=== PATIENT | female | born 2000 | race Caucasian/White ===

== ENCOUNTER → 2024-03-03 09:00 | Outpatient (REF) | payer OTHER, SELFPAY | LOC: DHSLP 09:00 | PROVIDERS: ATTENDING PHYSICIAN Internal Medicine Critical Care Medicine | DX: G47.19 Other hypersomnia (principal); G47.8 Other sleep disorders; R06.83 Snoring | CPT/HCPCS: 95800 ==

== ENCOUNTER 2025-05-04 10:51 | Emergency (ER) | payer SELFPAY ==
[2025-05-04 10:53] VITALS: BP 134/84
--- NOTE | 2025-05-04 11:40 | ED.GENMED ---
History of Present Illness
General
Chief Complaint: Skin Surface Trauma
Time Seen by Provider: 05/04/25 11:20
History of Present Illness
History of Present Illness:
24-year-old female presenting to the emergency department with laceration to left index finger. Patient reports she was cutting food prior to arrival with subsequent injury. Denies issues with range of motion. Denies numbness. Tetanus unknown.
Denies additional acute medical complaints
Past History
Past History
ED Past Medical History: None
ED Past Surgical History: None
Phy Exam
Physical Exam
Physical Exam:
General: Well-appearing, no clinical signs of dehydration, nontoxic and in no acute distress
HEENT: protecting airway
Neck: appears supple
CV: Normal heart rate
Resp: No accessory muscle use, no increased work of breathing
Abd: no distension
Extremities: No deformities, no swelling. Flap laceration to the left index finger at the distal aspect of the digit without involvement to the nailbed with range of motion intact.
Neuro: alert, no focal neurologic deficit
: deferred
Rectal: deferred
Psych: Normal affect
Skin: Intact
Course
Vital Signs
Initial and Last Documented VS:
Initial Vital Signs
Temp Pulse Resp BP Pulse Ox
98.2 F 83 18 134/84 99
05/04/25 10:53 05/04/25 10:53 05/04/25 10:53 05/04/25 10:53 05/04/25 10:53
Last Documented Vital Signs
Temp Pulse Resp BP Pulse Ox
98.2 F 83 18 134/84 99
05/04/25 10:53 05/04/25 10:53 05/04/25 10:53 05/04/25 10:53 05/04/25 11:40
Procedures
Laceration Closure
Left Finger(s):
Status of Wound: clean
Size of Wound in cm: 4
Description of Wound Edges: flap-well vascularized
Preparation: cleaned with saline
Anesthesia: 1% Lidocaine
Type of Closure: single layer closure
Skin Closure Material: 5-0 prolene
MDM/Problems Addressed
MDM/Problems Addressed:
24-year-old female presenting with laceration to left first digit. Vital signs are normal. On exam, flap like laceration. No neurovascular compromise to the digit. No concern for infection. Will appropriately repair with sutures. Please see
procedure note. Will update tetanus. Plan for discharge with outpatient follow-up for suture removal
*Pulse Oximetry
SaO2: 99
Patient hypoxic: no
*Critical Care Note
Total Time (30-74mins, 75-104mins- exclusive of procedures): Not Applicable
ED Attending Note
-
Portions of this chart may have been created with voice recognition software.� Occasional wrong word or��sound alike� substitutions may have occurred due to the inherent limitations of voice recognition software.
Discharge Plan
Departure
Patient with high blood pressure during this ER visit?: No
Condition: Good
Discharge Problem:
Laceration of finger of left hand
Instructions: Laceration Repair With Stitches (DC)
Activity Restrictions/Additional Instructions:
You were seen in the emergency department for laceration to your finger
You had sutures placed which will need to be removed in about 7 days.
Please follow-up closely with your primary care physician.
Return to the emergency department for any worsening of your symptoms, or any development of chest pain, difficulty breathing, abdominal pain with persistent vomiting and inability to tolerate food or liquid by mouth (concern for dehydration),
weakness, headache or confusion, fever greater than 100.4, or any additional symptoms that are concerning to you.
Thank you for choosing [facility].
Interventions
Interventions:
*Risk Screen - Suicide Last Done: 05/04/25 10:53
*Neglect/Abuse Screening Last Done: 05/04/25 10:53
Discharge Date and Time
Print Language: CZECH
[2025-05-04] MEDS: ADACEL 0.5 ML IM (12:26)
== END 2025-05-04 12:25 | disposition home or self-care (01) ==
LOC: EMR 10:51
PROVIDERS: EMERGENCY PHYSICIAN Student in an Organized Health Care Education/Training Program; FAMILY PHYSICIAN Family Medicine
DX: S61.211A Laceration without foreign body of left index finger without damage to nail, initial encounter (principal); W27.8XXA Contact with other nonpowered hand tool, initial encounter; Y93.G9 Activity, other involving cooking and grilling; Y92.89 Other specified places as the place of occurrence of the external cause; Y99.0 Civilian activity done for income or pay; Z23 Encounter for immunization
CPT/HCPCS: 12002; 90471; 99282; 90715